=== PATIENT | female | born 1970 | race Caucasian/White ===

== ENCOUNTER → 2017-04-10 | Outpatient (CLI) | payer OTHER | END | disposition home or self-care (01) | LOC: C.PAPS 10:12 | PROVIDERS: ATTEND Obstetrics & Gynecology | DX: Z12.4 Encounter for screening for malignant neoplasm of cervix (principal) ==

== ENCOUNTER → 2017-05-28 | Outpatient (CLI) | payer OTHER ==
[~2017-05-28] MED LIST: CHOL2000 PO; CYAN100020 PO; CYM/30 PO; FRS/40 PO; HYDR25CA PO; LIRA18IN INJ; OXAP600T2 PO; OXYBUTYNIN PO; OXYC-57 PO; PANT40TA PO; SPIR100T PO; SPIR50TA2 PO; TIZA4CAP PO; TOPI100T20 PO; VNTHFA/IN INH
--- NOTE | 2017-05-28 10:55 | DIAGNOSTIC IMAGING REPORT ---
ULTRASOUND RIGHT UPPER QUADRANT ABDOMEN CLINICAL HISTORY: Cholelithiasis. COMPARISON STUDY: Abdominal CT dated 04/13/2014. TECHNIQUE: Real-time, grayscale, and color flow sonography of the right upper quadrant of the abdomen was performed. Images are reviewed in the transverse and longitudinal planes. FINDINGS: Liver: The liver is top normal in size and demonstrates heterogeneously increased echotexture consistent with hepatic steatosis. There is no intrahepatic biliary ductal dilatation. The main portal vein is patent. Gallbladder: There is a large shadowing calcified gallstone which measures at least 3.3 cm. There is no gallbladder wall thickening or pericholecystic fluid. A sonographic Pemberton's sign is reportedly absent. The common bile duct measures up to 0.4 cm in diameter. Pancreas: Visualized portions of the pancreatic head and body are normal in appearance. The splenic vein is patent. Right kidney: Survey images of the right kidney demonstrate normal size and echotexture. There is no hydronephrosis. A nonobstructing right renal calculus is noted. Ascites: None. IMPRESSION: 1. Cholelithiasis without sonographic evidence of acute cholecystitis. 2. Nonobstructing right kidney stone. 3. Mild hepatic steatosis. Electronically signed by: Ronny Perez M.D. 05/28/2017 10:54 AM Dictated Date/Time: 05/28/2017 10:52 AM
== END | disposition home or self-care (01) ==
LOC: C.ULTR 10:11
PROVIDERS: ATTEND Surgery
DX: K80.20 Calculus of gallbladder without cholecystitis without obstruction (principal)

== ENCOUNTER 2017-06-10 05:14 | Day surgery (SDC) | payer OTHER ==
[2017-05-28 09:09] VITALS: BMI 46.0
--- NOTE | 2017-05-28 09:50 | PAT Medication Instructions ---
Service Date May 28, 2017. Current Home Medication List Albuterol Hfa (Ventolin Hfa), 2 PUFFS INH Q6H PRN for PRN Cholecalciferol (Vitamin D3), 1 CAP PO QAM Cyanocobalamin (Vitamin B12), 1,000 MCG PO QAM Duloxetine HCl (Cymbalta), 1 CAP PO BID Furosemide (Lasix), 40 MG PO PRN Hydroxyzine Pamoate (Vistaril), 1 CAP PO TID PRN for PRN Liraglutide (Victoza), 18 MG INJ QAM Oxaprozin (Daypro), 600 MG PO BID Oxycodone/Acetaminophen 5MG/325MG (Percocet 5MG/325MG), 1 TABLET PO Q6H PRN for Pain Pantoprazole (Protonix), 40 MG PO QAM Spironolactone (Aldactone), 100 MG PO QAM Spironolactone (Aldactone), 50 MG PO QPM Tizanidine (Zanaflex), 4 MG PO PM/HS Topiramate (Topamax), 150 MG PO HS [Oxybutynin], 10 MG PO HS Medication Instructions For Your Scheduled Surgery - Hold the following medications the morning of surgery: Spironolactone (Aldactone), 100 MG PO QAM Furosemide (Lasix), 40 MG PO PRN Cholecalciferol (Vitamin D3), 1 CAP PO QAM Cyanocobalamin (Vitamin B12), 1,000 MCG PO QAM Oxaprozin (Daypro), 600 MG PO BID (otherwise okay to continue per surgeon) - Take the following medications the morning of surgery with a sip of water OTHERWISE NOTHING TO EAT OR DRINK AFTER MIDNIGHT: Pantoprazole (Protonix), 40 MG PO QAM Duloxetine HCl (Cymbalta), 1 CAP PO BID Hydroxyzine Pamoate (Vistaril), 1 CAP PO TID PRN Oxycodone/Acetaminophen 5MG/325MG (Percocet 5MG/325MG), 1 TABLET PO Q6H PRN for Pain (may take if needed up to 4 hours prior to surgery) Liraglutide (Victoza), 18 MG INJ QAM Albuterol Hfa (Ventolin Hfa), 2 PUFFS INH Q6H PRN for PRN (use if needed; BRING TO HOSPITAL) - Take the following medications as scheduled the night before surgery: Spironolactone (Aldactone), 50 MG PO QPM Tizanidine (Zanaflex), 4 MG PO PM/HS Topiramate (Topamax), 150 MG PO HS [Oxybutynin], 10 MG PO HS Duloxetine HCl (Cymbalta), 1 CAP PO BID Hydroxyzine Pamoate (Vistaril), 1 CAP PO TID PRN Oxycodone/Acetaminophen 5MG/325MG (Percocet 5MG/325MG), 1 TABLET PO Q6H PRN for Pain Albuterol Hfa (Ventolin Hfa), 2 PUFFS INH Q6H PRN for PRN If you have any questions please call us at [phone] or [phone] or [phone]
[2017-05-28 10:51] LABS: BASO % 0.5 %; BASO ABS # 0.04 K/uL (0-0.2); EOS % 3.7 %; EOS ABS # 0.31 K/uL (0-0.5); HEMATOCRIT 39.1 % (37-47); HEMOGLOBIN 12.8 g/dL (12.0-16.0); IG# 0.03 K/uL (0.00-0.02); LYMPH % 26.1 %; LYMPH ABS # 2.17 K/uL (1.2-3.4); MEAN CELL VOLUME 87.3 fL (80-100); MEAN CORPUSCULAR HEMOGLOBIN 28.6 pg (25-34); MEAN CORPUSCULAR HGB CONC 32.7 g/dl (32-36); MEAN PLATELET VOLUME 12.2 fL (7.4-10.4); MONO % 7.2 %; NEUT % 62.1 %; NEUT ABS # 5.17 K/uL (1.4-6.5); PLATELET COUNT 243 K/uL (130-400); RED CELL DISTRIBUTION WIDTH CV 14.6 % (11.5-14.5); RED CELL DISTRIBUTION WIDTH SD 46.3 fL (36.4-46.3); WHITE BLOOD COUNT 8.32 K/uL (4.8-10.8)
[2017-05-28 10:59] LABS: ALBUMIN 3.8 gm/dl (3.4-5.0); CREATININE 0.97 mg/dl (0.60-1.20); POTASSIUM 4.1 mmol/L (3.5-5.1)
[2017-05-28 11:02] LABS: TOTAL PROTEIN 7.5 gm/dl (6.4-8.2)
[~2017-06-10] VITALS: Ht 165.1 cm; Wt 125.6 kg
[2017-06-10 05:50] VITALS: BP 141/88; PULSE 79; TEMP 36.8; O2SAT 98; Ht 165.1 cm; Wt 125.6 kg
[2017-06-10] MEDS ORDERED: CEFOXITIN IV 2,000 MG in DEXTROSE 5% 50ML 50 ML IV SCH (06:00)
[2017-06-10] MEDS ORDERED: LACTATED RINGER'S 1000ML 1,000 ML IV SCH (06:00)
[2017-06-10] MEDS ORDERED: PHENYLEPHRINE 100MCG/ML 5ML SYR IV PRN (06:15)
[2017-06-10] MEDS ORDERED: HYDROmorphone INJ 1 MG/ML SYR IV PRN (06:15)
[2017-06-10] MEDS ORDERED: PROMETHAZINE HCL INJ 12.5 MG in SODIUM CHLORIDE 0.9% 50ML 50 ML IV PRN (06:15)
[2017-06-10] MEDS ORDERED: ATROPINE SULFATE 0.1 MG/ML 5ML SYR IV PRN (06:15)
[2017-06-10] MEDS ORDERED: ONDANSETRON INJ 2 MG/ML 2 ML VIAL IV PRN ×2 (06:15→08:45)
[2017-06-10] MEDS ORDERED: EpHEDrine SULFATE INJ 50 MG/ML AMP IV PRN (06:15)
[2017-06-10] MEDS ORDERED: NEOSTIGMINE METHYLSULFATE 5 MG/5 ML SYR ONE (06:37)
[2017-06-10] MEDS ORDERED: EpHEDrine SULFATE INJ 50 MG/ML AMP ONE (06:37)
[2017-06-10] MEDS ORDERED: PROPOFOL IV EMULSION 10 MG/ML 20 ML VIAL IV ONE ×2 (06:37→08:27)
[2017-06-10] MEDS ORDERED: LIDOCAINE HCL 2% 2 ML VIAL (20MG/ML) ONE (06:37)
[2017-06-10] MEDS ORDERED: MIDAZOLAM HCL 1 MG/ML 2ML VIAL ONE (06:37)
[2017-06-10] MEDS ORDERED: FENTANYL CITRATE INJ 50 MCG/1 ML 2 ML VIAL ONE (06:37)
[2017-06-10] MEDS ORDERED: ONDANSETRON INJ 2 MG/ML 2 ML VIAL ONE (06:37)
[2017-06-10] MEDS ORDERED: SUCCINYLCHOLINE CHLORIDE 20 MG/ML 10 ML VIAL IV ONE (06:37)
[2017-06-10] MEDS ORDERED: PHENYLEPHRINE HCL INJ 10 MG/ML VIAL ONE (06:37)
[2017-06-10] MEDS ORDERED: GLYCOPYRROLATE INJ 0.2 MG/ML VIAL ONE (06:37)
[2017-06-10] MEDS ORDERED: DEXAMETHASONE SOD INJ 4 MG/ML VIAL ONE (06:37)
[2017-06-10] MEDS ORDERED: BUPIVACAINE 0.5 % 5 MG/1 ML MPF 30ML VIAL ONE (06:39)
--- NOTE | 2017-06-10 07:07 | History & Physical Bridge Note ---
H&P Re-Evaluation Bridge Note: I have examined the patient, reviewed the History & Physical and in the interval since the performance of the History & Physical I have noted the following changes of clinical significance: No changes noted
[2017-06-10] MEDS ORDERED: METOCLOPRAMIDE HCL INJ 5 MG/ML 2 ML VIAL ONE (07:32)
[2017-06-10] MEDS ORDERED: ROCURONIUM BROMIDE 10 MG/ML 5 ML VIAL IV ONE (08:08)
--- NOTE | 2017-06-10 08:31 | [facility] Post Operative Brief Note ---
Immediate Operative Summary Operative Date Jun 10, 2017. Pre-Operative Diagnosis Cholelithiasis Post-Operative Diagnosis Cholelithiasis Procedure(s) Performed Laparoscopic Cholecystectomy Surgeon Dr. Whitmore Wrap Checker Surgeon(s) Vannessa Matos PA-C Estimated Blood Loss 6CC Findings large gallstone, chronic cholecystitis. Window of safety obtained, cystic duct and artery doubly clipped and divided. Specimens A: Gallbladder and contents Drains None Anesthesia GETA Complication(s) None Disposition Recovery Room / PACU
--- NOTE | 2017-06-10 08:36 | [facility] Operative Report ---
Operative Report Operative Date Jun 10, 2017. Pre-Operative Diagnosis Cholelithiasis Post-Operative Diagnosis cholelithiasis, chronic cholecystitis Procedure(s) Performed Laparoscopic cholecystectomy Surgeon Dr. Wihtmore Administrative Clerk Surgeon(s) Vannessa Matos PA-C Estimated Blood Loss 6CC Findings large gallstone, chronic cholecystitis. Window of safety obtained, cystic duct and artery doubly clipped and divided. Specimens A: Gallbladder and contents Drains None Anesthesia GETA Complication(s) None Disposition Recovery Room / PACU Indications 47-year-old female with large gallstone on ultrasound and symptomatic cholelithiasis. Plan for laparoscopic cholecystectomy with possible intraoperative cholangiogram. The risks of the procedure were discussed, all questions were answered, and the patient agreed to proceed with surgery as planned. Description of Procedure The patient was properly identified, consented, and taken to the operating room where she was placed in the supine position. General endotracheal anesthesia was induced. SCDs and a safety belt were placed. Preoperative antibiotics were administered. The patient's abdomen was prepped and draped in the standard sterile fashion. A surgical timeout was performed and all parties were in agreement that this was the correct patient and procedure to be performed and we continued as planned. An incision was made superior and to the left of the umbilicus overlying the rectus muscle and the Veress needle was inserted. Saline drop test confirmed entry into the peritoneum. The abdomen was insufflated with carbon dioxide which the patient tolerated without incident. The abdomen was then entered using the Optiview technique and a 5 mm trocar. The laparoscope was inserted and no damage from initial trocar or Veress needle placement was noted, no gross abnormalities were noted within the 4 quadrants of the abdomen. An 11 mm port was placed in the subxiphoid position and two 5 mm ports were then placed in the right subcostal position. The patient was placed in reverse Trendelenburg position and rotated towards the left. The dome of the gallbladder was retracted towards the left upper quadrant and the infundibulum was retracted toward the right lower quadrant revealing Calot' s triangle. Peritoneal attachments were taken down with electrocautery and blunt dissection. A very large gallstone was present in the gallbladder and there is evidence of chronic cholecystitis. The cystic duct and artery were circumferentially dissected. A window of safety was obtained showing the cystic duct entering the gallbladder with no aberrant structures noted. The cystic duct and artery were doubly clipped and divided. The gallbladder was then lifted off the gallbladder fossa with electrocautery. The gallbladder was placed in an Endo Catch bag and removed through the subxiphoid port site, which needed to be enlarged to accommodate the large gallstone. The right upper quadrant was irrigated and hemostasis was found to be good. 5 mm trochars were removed under direct visualization and the abdomen was allowed to collapse. The subxiphoid port site fascia was closed with running 0 Vicryl suture. The wound was irrigated, and the skin of all ports was closed with 4-0 Monocryl subcuticular sutures. Dermabond was placed over the wounds. The Vannessa MCKEON was present and scrubbed for the entirety of the case. She was essential in prepping and draping the patient, entering the abdomen, exposure, retraction, and closure. The patient was extubated in the operating room and taken to the PACU where she recovered without apparent incident. All sponge, instrument and needle counts were correct at the conclusion of the procedure. The patient tolerated the procedure well. I attest to the content of the Intraoperative Record and any orders documented therein. Any exceptions are noted below.
[2017-06-10] MEDS ORDERED: SODIUM CHLORIDE 0.9% 1000ML 1,000 ML IV SCH (08:42)
[2017-06-10] MEDS ORDERED: OXYCODONE/ACETAMINOPHEN 5-325 TAB PO PRN ×2 (08:45)
--- NOTE | 2017-06-10 08:45 | Discharge Instructions ---
Discharge Instructions Date of Service Jun 10, 2017. Admission Reason for Admission: Cholelithiasis Discharge Discharge Diagnosis / Problem: Cholelithiasis Discharge Goals Goal(s): Decrease discomfort, Improve function Activity Recommendations Activity Limitations: as noted below Lifting Limitations: no more than 10 pounds Exercise/Sports Limitations: until after follow-up appointment May Resume Sexual Activity: after follow-up appointment Shower/Bathe: tomorrow Driving or Machine Use: resume 1 day after discharge . Instructions / Follow-Up Instructions / Follow-Up Please follow-up with Dr. Whitmore in the General Surgery Clinic in 1-2 weeks. Please call the office at [phone] to make this appointment if you did not already. Please call the office with any questions or concerns. Current Hospital Diet Patient's current hospital diet: Discharge Diet Recommended Diet: Regular Diet Procedures Procedures Performed: Laparoscopic Cholecystectomy Pending Studies Studies pending at discharge: yes List of pending studies: Pathology report. Medical Emergencies . Who to Call and When: Medical Emergencies: If at any time you feel your situation is an emergency, please call 911 immediately. . Non-Emergent Contact Non-Emergency issues call your: Primary Care Provider, Surgeon Call Non-Emergent contact if: temperature is above 101.5, your pain is not controlled, wound has increased drainage, wound has increased redness . "Provider Documentation" section prepared by Vannessa Matos. . VTE Core Measure Inpt VTE Proph given/why not?: SCD's [place] Drug Monitoring Program Search Results: patient reviewed within database, no issues identified
[2017-06-10] MEDS: FENTANYL CITRATE INJ 50 MCG/1 ML 2 ML VIAL IV PRN ×4 (08:56→09:22)
--- NOTE | 2017-06-10 09:32 | Anesthesiology Progress Note ---
Anesthesia Post Op Note Date & Time Jun 10, 2017 at 09:32 Vital Signs Pain Intensity: 5.0 Vital Signs Past 12 Hours Date Time Temp Pulse Resp B/P (MAP) Pulse Ox O2 Delivery O2 Flow Rate FiO2 06/10/17 09:20 97 17 121/74 99 Room Air 06/10/17 09:10 90 16 122/76 98 Room Air 06/10/17 09:00 98 17 132/79 100 Oxymask 10 06/10/17 08:50 98 16 157/93 100 Oxymask 10 06/10/17 08:44 36.2 78 16 185/90 100 Oxymask 10 06/10/17 05:50 36.8 79 20 141/88 (105) 98 Room Air Notes Mental Status: alert / awake / arousable, participated in evaluation Pt Amnestic to Procedure: Yes Nausea / Vomiting: adequately controlled Pain: adequately controlled Airway Patency, RR, SpO2: stable & adequate BP & HR: stable & adequate Hydration State: stable & adequate Anesthetic Complications: no major complications apparent Awake, doing well, no complaints. VSS
[2017-06-10 09:48] VITALS: BP 137/76; PULSE 85; TEMP 36.5; O2SAT 97
[2017-06-10 10:17] VITALS: BP 126/74; PULSE 85; O2SAT 99
[2017-06-10 10:50] VITALS: BP 126/69; PULSE 91; TEMP 36.6; O2SAT 97
== END 2017-06-10 11:33 | disposition home or self-care (01) ==
LOC: C.ACU 05:14
PROVIDERS: ATTEND Surgery
DX: K80.10 Calculus of gallbladder with chronic cholecystitis without obstruction (principal); E11.9 Type 2 diabetes mellitus without complications; F41.9 Anxiety disorder, unspecified; F32.9 Major depressive disorder, single episode, unspecified; G47.33 Obstructive sleep apnea (adult) (pediatric); Z91.040 Latex allergy status; Z98.818 Other dental procedure status; Z98.890 Other specified postprocedural states; E66.01 Morbid (severe) obesity due to excess calories; Z68.42 Body mass index [BMI] 45.0-49.9, adult; Z87.891 Personal history of nicotine dependence; Z82.5 Family history of asthma and other chronic lower respiratory diseases

== ENCOUNTER → 2017-10-01 | Outpatient (CLI) | payer OTHER | END | disposition home or self-care (01) | LOC: C.LABSPEC 15:42 | PROVIDERS: ATTEND Obstetrics & Gynecology | DX: R39.9 Unspecified symptoms and signs involving the genitourinary system (principal) ==